=== PATIENT | male | born 1985 | race Two or more races ===

== ENCOUNTER 2018-12-05 22:37 | Inpatient (IN) | payer SELFPAY ==
[~2018-12-05] VITALS: Ht 175.3 cm; Wt 101.0 kg
[~2018-12-05 22:37] MED LIST: ACE650RS
[2018-12-05] MEDS ORDERED: cloNIDine HCL 0.1 MG TAB PO ONE (23:00)
[2018-12-05 23:29] LABS: Basophils # (auto) 0.1 uL; Basophils % (auto) 1.3 % (0.0-2.0); Eosinophils # (auto) 0.1 uL; Eosinophils % (auto) 0.7 % (0.0-7.0); Hemoglobin 16.8 g/dL (13.5-17.5); Lymphocytes # (auto) 1.4 uL; Lymphocytes % (auto) 18.1 % (10.0-50.0); Mean Corpuscular Hemoglobin 32.7 pg (28.0-32.0); Mean Corpuscular Hgb Conc. 34.3 g/dL (32.0-36.0); Mean Corpuscular Volume 95.5 fL (80.0-100.0); Monocytes % (auto) 13.3 % (0.0-12.0); Neutrophils # (auto) 5.1 uL; Neutrophils % (auto) 66.6 % (37.0-80.0); Platelet Count (auto) 182 10^3/uL (140-450); Red Blood Cells 5.13 10^6/uL (4.5-5.90); Red Cell Distribution Width 13.6 % (11.8-14.3); White Blood Cell 7.6 10^3/uL (4.4-10.8)
[2018-12-05 23:45] LABS: Albumin 4.1 g/dL (3.4-5.0); Anion Gap 12 (5-15); Blood Urea Nitrogen 8 mg/dL (7-18); Calcium 8.5 mg/dL (8.5-10.1); Carbon Dioxide 25 mmol/L (21-32); Chloride 102 mmol/L (98-107); Glucose 126 mg/dL (74-106); Magnesium 2.3 mg/dL (1.6-2.6); Potassium 3.3 mmol/L (3.5-5.1); Sodium 139 mmol/L (136-145)
[2018-12-05 23:46] LABS: Alanine Aminotransferase 93 U/L (16-61); Aspartate Aminotransferase 111 U/L (15-37); BUN/Creatinine Ratio 8.8; GFR African American 123 mL/min; GFR Non-African American 101 mL/min
[2018-12-05 23:52] LABS: Alkaline Phosphatase 82 U/L (45-117); Bilirubin, Total 0.9 mg/dL (0.2-1.0); Total Protein 8.7 g/dL (6.4-8.2)
[2018-12-06] LABS: Urine Bacteria NONE SEEN /hpf (None Seen); Urine Blood TRACE /uL (Negative); Urine Mucus FEW (None Seen); Urine Specific Gravity 1.022 (1.001-1.035); Urine WBC <1 /hpf (0 - 3)
[2018-12-06 00:12] LABS: Amphetamine Screen, Urine NEGATIVE (NEGATIVE); Barbiturate Scree,Urine NEGATIVE (NEGATIVE); Benzodiazephine Screen, Urine NEGATIVE (NEGATIVE); Cannabinoid Screen, Urine NEGATIVE (NEGATIVE); Cocaine Screen, Urine NEGATIVE (NEGATIVE); Opiate Scree,Urine NEGATIVE (NEGATIVE); Phencyclidine Screen, Urine NEGATIVE (NEGATIVE)
[2018-12-06] MEDS ORDERED: cloNIDine HCL 0.1 MG TAB PO ONE ×2 (01:15→04:45)
[2018-12-06] MEDS ORDERED: SODIUM CHLORIDE 0.9% 500 ML IV ONE (02:59)
[2018-12-06] MEDS ORDERED: ENALAPRILAT 1.25 MG/ML-1ML VIAL IV ONE (03:00)
[2018-12-06] MEDS ORDERED: POTASSIUM CHL 10 Meq TABLET PO ONE (03:00)
[2018-12-06] MEDS ORDERED: IOHEXOL 350 MG/ML 100ML IJ ONE (03:13)
[2018-12-06 04:38] LABS: INR 1.01 (0.9-1.15); Partial Thromboplastin Time 27.5 sec (23.64-32.05)
[2018-12-06] MEDS ORDERED: hydrALAZINE HCL 20 MG/ML VL IV ONE (05:45)
[2018-12-06] MEDS ORDERED: TEMAZEPAM 15 MG CAP PO PRN (06:15)
[2018-12-06] MEDS ORDERED: LABETALOL HCL 5 MG/ML ML 20ML VIAL IV ONE (06:15)
[2018-12-06] MEDS ORDERED: ACETAMINOPHEN 325 MG TAB PO PRN (06:15)
[2018-12-06] MEDS ORDERED: ONDANSETRON HCL 4 MG/2 ML VIAL IV PRN (06:15)
[2018-12-06] MEDS ORDERED: cloNIDine HCL 0.1 MG TAB PO PRN (06:15)
[2018-12-06] MEDS ORDERED: amLODIPine BESYLATE 5 MG TAB PO SCH (10:00)
--- NOTE | 2018-12-06 10:00 | NUR ---
Telemetry admit from ER SATYA LARSEN admitted to room 251B. Patient oriented to ROMI GROVER, primary RN, unit, room, bed, and unit policies regarding patient care and visiting hours. Patient med/surg. No s/s of distress. Bed locked in lowest position with call light in reach. All questions and concerns addressed, patient verbalized understanding.
[2018-12-06 10:02] VITALS: BP 149/92
[2018-12-06] MEDS: FAMOTIDINE 20 MG TAB PO SCH ×2 (10:25→21:32)
[2018-12-06 13:00] VITALS: BP 150/95
[2018-12-06] MEDS ORDERED: hydrALAZINE HCL 20 MG/ML VL IV PRN (13:30)
[2018-12-06] MEDS ORDERED: MULTIPLE VITAMINS W/ MINERALS TAB PO ONE (13:30)
[2018-12-06] MEDS ORDERED: LISINOPRIL 20 MG TAB PO ONE (13:30)
[2018-12-06] MEDS ORDERED: THIAMINE HCL 100 MG TAB PO ONE (13:30)
[2018-12-06] MEDS ORDERED: NICOTINE 21MG/24 HR TOPICAL PATCH TD ONE (13:30)
[2018-12-06] MEDS ORDERED: DEXTROSE (50%) 50ML SYRG IV PRN (13:30)
[2018-12-06] MEDS ORDERED: chlordiazePOXIDE HCL 5 MG CAP PO PRN (13:45)
--- NOTE | 2018-12-06 15:11 | NUR ---
Received referral to see pt regarding alcohol abuse. Gave pt resources through out [facility] [place] for ETOH rehabs. Pt was positive about accepting them.
[2018-12-06 17:00] VITALS: BP 150/93
[2018-12-06] MEDS: InsuLIN REG 1unit/0.01ml Soln (100units/ml) SC SCH ×2 (17:00→21:36)
[2018-12-06] MEDS: ACCU-CHEK COMFORT CURVE STRIP VI SCH ×2 (17:11→21:34)
[2018-12-06] MEDS: metFORMIN HYDROCHLORIDE 500 MG TAB PO SCH (17:59)
--- NOTE | 2018-12-06 19:30 | NUR ---
OPENING NOTE REPORT RECEIVED FROM DAY SHIFT RN PATIENT IS A/OX4 RESTING IN BED, ABLE TO ANSWER ALL QUESTIONS APPROPRIATELY. PATIENT CURRENTLY NPO, PENDING LIVER ULTRASOUND TO BE DONE AROUND 1999. NO S/S OF ETOH WITHDRAWAL NOTED AT THIS TIME, PATIENT APPEARS CALM, STABLE, ONLY ASKING FOR FOOD AND STATES HE IS "HUNGRY". POC DISCUSSED FOR TONIGHT. EDUCATED PATIENT TO REMAIN NPO UNTIL AFTER LIVER ULTRASOUND. ALSO EDUCATED PATIENT THAT A TELE PSYCH CONSULT WAS PLACED BY MD FOR ANXIETY AND DEPRESSION. PATIENT VERBALIZED UNDERSTANDING AND AGREES TO PLAN FOR TONIGHT. WILL CONTINUE TO MONITOR THROUGHOUT SHIFT, CALL LIGHT WITHIN REACH.
--- NOTE | 2018-12-06 20:23 | NUR ---
ULTRASOUND AT BEDSIDE PERFORMING LIVER ULTRASOUND
--- NOTE | 2018-12-06 20:45 | NUR ---
TRAY PATIENT NOW DONE WITH LIVER ULTRASOUND. PATIENT DINNER TRAY WAS SUPPOSED TO BE HELD FOR LIVER ULTRASOUND. NO TRAY ON UNIT. NO EXTRA TRAYS IN PANTRY. PATIENT UPSET THAT DINNER TRAY WAS NOT SAVED BY DAY SHIFT OFFERED PATIENT SANDWICH, PATIENT ACCEPTED, STILL UPSET
[2018-12-06 21:00] VITALS: BP 157/107
--- NOTE | 2018-12-06 21:58 | NUR ---
PATIENT REFUSED 2200 INSULIN PER SLIDING SCALE PATIENT JUST FINISHED EATING A SANDWICH AND STATES, "ITS NOT NORMALLY THAT HIGH, I JUST ATE A FEW MINUTES AGO" EDUCATED PATIENT ON IMPORTANCE OF GLUCOSE CONTROL, PATIENT STATES HE IS "NO DIABETIC" WILL CONTINUE TO MONITOR
--- NOTE | 2018-12-06 22:01 | NUR ---
TELE PSYCH PATIENT REFUSING TELE PSYCH FOR TONIGHT. EDUCATED PATIENT THAT MD ORDERED CONSULT FOR DEPRESSION AND ANXIETY. PATIENT STATES, "WELL OKAY BUT NOT TONIGHT. I'M TIRED, I DIDN'T SLEEP AT ALL LAST NIGHT. CAN WE DO IT TOMORROW AFTER BREAKFAST. I JUST WANT TO SLEEP". PATIENT REFUSING TO HAVE TEL PSYCH SET UP AT THIS TIME BECAUSE "IT WILL TAKE TOO LONG AND I'M TIRED NOW".
[2018-12-06 22:35] VITALS: BP 124/72
[2018-12-07] VITALS (7 sets, daily range): BP systolic 81–157; BP diastolic 81–109
--- NOTE | 2018-12-07 06:05 | NUR ---
OFFERED TO START TELE PSYCH CONSULT. TELE PSYCH MACHINE BROUGHT IN PATIENT REFUSING AGAIN AT THIS TIME, STATES HE IS "STILL TIRED AND WANTS TO SLEEP" PATIENT REQUESTS TO "DO IT LATER"
[2018-12-07] MEDS: metFORMIN HYDROCHLORIDE 500 MG TAB PO SCH ×2 (06:17→18:42)
[2018-12-07] MEDS: ACCU-CHEK COMFORT CURVE STRIP VI SCH ×4 (06:18→21:29)
[2018-12-07] MEDS: InsuLIN REG 1unit/0.01ml Soln (100units/ml) SC SCH ×4 (06:18→21:29)
[2018-12-07 06:44] LABS: Basophils # (auto) 0.1 uL; Basophils % (auto) 2.4 % (0.0-2.0); Eosinophils # (auto) 0.1 uL; Eosinophils % (auto) 2.4 % (0.0-7.0); Hematocrit 47.1 % (41.0-53.0); Hemoglobin 16.3 g/dL (13.5-17.5); Lymphocytes # (auto) 1.1 uL; Mean Corpuscular Hemoglobin 33.3 pg (28.0-32.0); Mean Corpuscular Hgb Conc. 34.7 g/dL (32.0-36.0); Monocytes # (auto) 0.7 uL; Monocytes % (auto) 12.4 % (0.0-12.0); Neutrophils # (auto) 3.4 uL; Neutrophils % (auto) 62.8 % (37.0-80.0); Nucleated Red Blood Cells % 0.1 %; Platelet Count (auto) 179 10^3/uL (140-450); Red Blood Cells 4.91 10^6/uL (4.5-5.90); Red Cell Distribution Width 13.6 % (11.8-14.3); White Blood Cell 5.4 10^3/uL (4.4-10.8)
[2018-12-07 07:00] LABS: Albumin 3.7 g/dL (3.4-5.0); Calcium 9.2 mg/dL (8.5-10.1); Potassium 3.7 mmol/L (3.5-5.1)
--- NOTE | 2018-12-07 07:00 | NUR ---
CLOSING NOTE PATIENT IS SLEEPING WITHOUT S/S OF DISTRESS. CALL LIGHT WITHIN REACH. WILL ENDORSE CARE TO DAY SHIFT RN
[2018-12-07 07:06] LABS: BUN/Creatinine Ratio 14.1; Bilirubin, Total 1.1 mg/dL (0.2-1.0); Total Protein 7.6 g/dL (6.4-8.2)
--- NOTE | 2018-12-07 10:00 | NUR ---
Pt declines tele psych evaluation at this time. Pt states that he will seek therapy as an outpatient, upon discharge, for anxiety and depression. States that he does not have suicidal ideations at this time. Pt is calm, easily engaging in conversation, with good eye contact. Pt denies pain or discomfort at this time. PRN Librium offered to pt at this time. Pt states that he is not experiencing tremors, and feels no need to take Librium.
[2018-12-07] MEDS: FAMOTIDINE 20 MG TAB PO SCH ×2 (10:26→21:28)
[2018-12-07] MEDS: THIAMINE HCL 100 MG TAB PO SCH (10:26)
[2018-12-07] MEDS: MULTIPLE VITAMINS W/ MINERALS TAB PO SCH (10:27)
[2018-12-07] MEDS: NICOTINE 21MG/24 HR TOPICAL PATCH TD SCH (10:28)
[2018-12-07] MEDS: LISINOPRIL 20 MG TAB PO SCH (10:29)
[2018-12-07] MEDS ORDERED: ATORVASTATIN 20 MG TAB PO SCH (22:00)
[2018-12-08 05:16] VITALS: BP 123/70
[2018-12-08] MEDS: metFORMIN HYDROCHLORIDE 500 MG TAB PO SCH ×2 (06:10→17:36)
[2018-12-08] MEDS: InsuLIN REG 1unit/0.01ml Soln (100units/ml) SC SCH ×4 (06:10→21:28)
[2018-12-08] MEDS: ACCU-CHEK COMFORT CURVE STRIP VI SCH ×4 (06:10→21:28)
--- NOTE | 2018-12-08 06:10 | NUR ---
PATIENT RESTING WITH NO S/S OF DISTRESS NOTED. PATIENT DENIES PAIN. BLOOD PRESSURE STABLE THROUGHOUT NIGHT.
[2018-12-08 06:19] LABS: Albumin 3.8 g/dL (3.4-5.0); Bilirubin, Direct 0.3 mg/dL (0-0.2)
[2018-12-08 06:24] LABS: Bilirubin, Total 0.9 mg/dL (0.2-1.0); Total Protein 7.7 g/dL (6.4-8.2)
[2018-12-08 08:00] VITALS: BP 139/86
[2018-12-08] MEDS: NICOTINE 21MG/24 HR TOPICAL PATCH TD SCH (10:00)
[2018-12-08] MEDS: THIAMINE HCL 100 MG TAB PO SCH (10:15)
[2018-12-08] MEDS: FAMOTIDINE 20 MG TAB PO SCH ×2 (10:15→21:26)
[2018-12-08] MEDS: MULTIPLE VITAMINS W/ MINERALS TAB PO SCH (10:15)
[2018-12-08] MEDS: LISINOPRIL 20 MG TAB PO SCH (10:16)
[2018-12-08 13:00] VITALS: BP 140/87
[2018-12-08 16:51] VITALS: BP 120/84
--- NOTE | 2018-12-08 19:15 | NUR ---
RECEIVED PATIENT LYING IN BED, AWAKE, ALERT, ORIENTED X4. NO S/S OF RESPIRATORY DISTRESS, DENIES SOB AND CHEST PAIN. ORIENTED ON PLAN OF CARE. BED IS LOCKED AND IN LOWEST LEVEL, SIDE RAILS UP X2, CALL LIGHT WITHIN REACH. WILL CONTINUE TO MONITOR
[2018-12-08 22:00] VITALS: BP 151/86
[2018-12-08 22:40] VITALS: BP 127/76
[2018-12-09 05:03] VITALS: BP_SYST 125; BP_SYST 136; BP_DIAS 62; BP_DIAS 76
[2018-12-09] MEDS: metFORMIN HYDROCHLORIDE 500 MG TAB PO SCH (06:24)
[2018-12-09] MEDS: InsuLIN REG 1unit/0.01ml Soln (100units/ml) SC SCH ×2 (06:26→11:30)
[2018-12-09] MEDS: ACCU-CHEK COMFORT CURVE STRIP VI SCH ×2 (06:26→12:05)
--- NOTE | 2018-12-09 07:15 | NUR ---
CARE ENDORSED TO AM SHIFT RN
--- NOTE | 2018-12-09 07:30 | NUR ---
Opening Shift Note Assumed care of patient, awake and alert. No S/S of distress/SOB or pain. Instructed on POC and to call for assist PRN, will continue to monitor. Bed locked in the lowest position. Bed rails up x2. Call light in reach.
[2018-12-09 07:36] LABS: Albumin 3.7 g/dL (3.4-5.0); Bilirubin, Direct 0.2 mg/dL (0-0.2)
[2018-12-09 07:38] LABS: Bilirubin, Total 0.9 mg/dL (0.2-1.0); Total Protein 7.8 g/dL (6.4-8.2)
[2018-12-09 09:00] VITALS: BP 117/89
[2018-12-09] MEDS: NICOTINE 21MG/24 HR TOPICAL PATCH TD SCH (10:00)
[2018-12-09] MEDS: FAMOTIDINE 20 MG TAB PO SCH (10:02)
[2018-12-09] MEDS: MULTIPLE VITAMINS W/ MINERALS TAB PO SCH (10:02)
[2018-12-09] MEDS: THIAMINE HCL 100 MG TAB PO SCH (10:02)
[2018-12-09] MEDS: LISINOPRIL 20 MG TAB PO SCH (10:03)
[2018-12-09 10:53] LABS: Hepatitis B Surface Antibody Negative
--- NOTE | 2018-12-09 11:00 | NUR ---
TEACHING DEMONSTRATED PROPER TECHNIQUE FOR BLOOD GLUCOSE MONITORING. PATIENT VERBALIZED UNDERSTANDING AND STATES, "I KNOW HOW TO MONITOR BLOOD SUGARS BECAUSE MY MOM DOES IT." ALL QUESTIONS AND CONCERNS ADDRESSED AT THIS TIME.
[2018-12-09 11:16] LABS: Hepatitis A Total Antibody Negative
--- NOTE | 2018-12-09 11:20 | NUR ---
Nutrition Assessment Notes please see attached link for complete assessment Est. Needs ABW [id number] kcal (23-25 kcal/kgBW), 86-94 gms pro (1.0-1.1 gms/kgABW). Will continue to monitor pertinent labs and reassess nutrient need prn Addendum: 12/09/18 at [address] Amended: Links added.
[2018-12-09] MEDS ORDERED: NIC21P TOP (12:34)
[2018-12-09] MEDS ORDERED: LISI-646 PO (12:35)
[2018-12-09] MEDS ORDERED: METF-370 PO (12:35)
[2018-12-09 12:52] LABS: Hepatitis B Core Total AB Negative
[2018-12-09 12:53] LABS: Hepatitis B Surface Antigen Negative (Negative); Hepatitis C Antibody Negative (Negative)
[2018-12-09 13:47] VITALS: BP 137/89
--- NOTE | 2018-12-09 14:00 | NUR ---
SOCIAL SERVICE CONSULT SPOKE WITH JESUS IN RECORD TESTER. PER JESUS, OK TO DISCHARGE PATIENT FROM RECORD TESTER STANDPOINT. CONTACTED DUNG WHO IS COVERING FOR DONN. PER DUNG, PATIENT APPLICATION IS FILED FOR MEDICAL AWAITING APPROVAL.
--- NOTE | 2018-12-09 15:00 | NUR ---
EDUCATION REINFORCED DIABETIC EDUCATION. PATIENT VERBALIZED UNDERSTANDING. ALL QUESTIONS AND CONCERNS ADDRESSED AT THIS TIME.
--- NOTE | 2018-12-09 15:45 | NUR ---
RX CLARIFICATION CLARIFIED RX OF "INSULIN NEEDLES." WITH MD, PATIENT IS NOT BEING DISCHARGED ON INSULIN. PER MD, D/C RX FOR INSULIN SYRINGES.
--- NOTE | 2018-12-09 16:00 | NUR ---
DISCHARGE Discharge instructions given as ordered. Encourage to follow up with PMD as instructed. All questions and concerns addressed. Patient verbalized understanding. Medication reconciliation form completed and copy given to patient. IV removed with catheter intact, pressure dressing applied. Ambulated with patient to [facility] with prescriptions and all personal belongings, accompanied by staff and family member. No distress noted at time of departure.
== END 2018-12-09 16:00 | disposition home or self-care (01) | DRG 443 ==
LOC: ER 22:39 → OVERFLOW 12-06 06:21 → EAST 12-06 09:41
PROVIDERS: ADMIT Nurse Practitioner; ATTEND Internal Medicine
DX: K70.0 Alcoholic fatty liver (principal); E78.5 Hyperlipidemia, unspecified; E66.9 Obesity, unspecified; E11.9 Type 2 diabetes mellitus without complications; I10 Essential (primary) hypertension; F17.210 Nicotine dependence, cigarettes, uncomplicated; E87.6 Hypokalemia; F32.9 Major depressive disorder, single episode, unspecified; F41.9 Anxiety disorder, unspecified; F10.10 Alcohol abuse, uncomplicated; Z68.32 Body mass index [BMI] 32.0-32.9, adult
CPT/HCPCS: 36415; 70450; 71045; 71275; 76705; 80053; 80061; 80076; 80307; 80320; 81001; 82088; 82962; 83036; 83735; 84244; 84443; 84484; 85025; 85610; 85730; 86704; 86706; 86708; 86803; 87340; 93005; 93306; 94761; 96361; 96374; 96375; G0378